=== PATIENT | male | born 1955 | race African-American/Black ===

== ENCOUNTER 2018-12-14 06:34 | Outpatient (CLI) | payer OTHER ==
[2018-12-14 11:49] LABS: Hemoglobin 14.3 g/dL (14.0-18.0); Mean Corpuscular HGB CONC 31.9 g/dL (32.0-36.0); Mean Corpuscular Hemoglobin 30.8 pg (27.0-31.0); Mean Corpuscular Volume 96.4 fL (78.0-98.0); Mean Platelet Volume 7.7 fL (7.4-10.4); Platelet Count 194 thou/uL (130-400); RBC Distribution Width 12.3 % (11.5-14.5); Red Blood Cell (RBC) Count 4.65 mill/uL (4.70-6.10); White Blood Cell (WBC) Count 4.1 thou/uL (4.8-10.8)
[2018-12-14 11:55] LABS: INR-International Normal Ratio 1.1; PTT 28.2 SEC (22.9-36.1); Prothrombin Time 14.4 SEC (12.0-14.7)
[2018-12-14 11:56] LABS: Bilirubin Negative (Negative); Blood, Urine Negative (Negative); Clarity CLEAR (Clear); Glucose, Urine (Dipstick) Negative (Negative); Leukocyte Trace (Negative); Nitrite Negative (Negative); Protein, Urine (Dipstick) Negative (Neg-Trace)
[2018-12-14 12:01] LABS: Bacteria/HPF None Seen HPF (None Seen); Hyaline Casts/LPF 4-6 HYALINE CAST LPF (0-3 Hyaline); Pathc Cast-AUWi Flag 0.72 (0-2.49); RBC/HPF 0-3 HPF (0-3); Squamous Epithelial 0-3 HPF (0-3); WBC/HPF 0-3 HPF (0-3)
[2018-12-14 12:08] LABS: Anion Gap 11 mmol/L (10-20); BUN (Urea Nitrogen) 13 mg/dL (8.4-25.7); Calc. Creatinine Clearance 0 mL/min (70-130); Calcium 9.5 mg/dL (7.8-10.44); Carbon Dioxide 31 mmol/L (23-31); Chloride 104 mmol/L (98-107); Estimated GFR-MDRD 57; Glucose 88 mg/dL (80-115); Potassium 3.7 mmol/L (3.5-5.1); Sodium 142 mmol/L (136-145)
[2018-12-14 12:25] LABS: Crystals/HPF None Seen HPF (Negative)
--- NOTE | 2018-12-15 20:59 | EKG ---
Test Reason : Blood Pressure : / mmHG Vent. Rate : 055 BPM Atrial Rate : 055 BPM P-R Int : 134 ms QRS Dur : 102 ms QT Int : 428 ms P-R-T Axes : 075 047 049 degrees QTc Int : 409 ms Sinus bradycardia Otherwise normal ECG No previous ECGs available Confirmed by Dominguez MARTIN ([id number]) on 12/15/2018 8:58:47 PM Referred By: MILENA Confirmed By:Dominguez MARTIN
== END 2018-12-14 06:35 | disposition home or self-care (01) ==
LOC: LABBT 06:34
PROVIDERS: ATTEND Urology
DX: Z01.818 Encounter for other preprocedural examination (principal); N40.1 Benign prostatic hyperplasia with lower urinary tract symptoms; R97.20 Elevated prostate specific antigen [PSA]
CPT/HCPCS: 80048; 81001; 85027; 85610; 85730; 87086; 93005; 93010

== ENCOUNTER 2018-12-21 06:03 | Observation (INO) | payer OTHER ==
[2018-12-14 10:54] VITALS: BMI 30.1
[2018-12-21] MEDS ORDERED: Levofloxacin 500 mg/D5W 100 ml Premix Bag ONE (06:20)
[2018-12-21] MEDS ORDERED: Fentanyl 100 MCG/2 ML VIAL ONE (08:54)
[2018-12-21] MEDS ORDERED: B & O ONE (09:06)
[2018-12-21] MEDS ORDERED: Phenazopyridine HCl 97.5 MG TABLET PO PRN (10:56)
[2018-12-21] MEDS ORDERED: hydrALAZINE 20 MG/ML VIAL SLOW IVP PRN (10:56)
[2018-12-21] MEDS ORDERED: Acetaminophen 500 MG TAB PO PRN (10:56)
[2018-12-21] MEDS ORDERED: Mag-Al 1200 mg/1200 mg/30 ML UDCUP PO PRN (10:56)
[2018-12-21] MEDS ORDERED: Hyoscyamine Sulfate SL 0.125 mg Tablet SL PRN (10:56)
[2018-12-21] MEDS ORDERED: Oxybutynin 5 MG TAB PO PRN (10:56)
[2018-12-21] MEDS ORDERED: Ondansetron PF 4 MG/2 ML Vial IVP PRN (10:56)
[2018-12-21] MEDS ORDERED: diphenhydrAMINE 25 MG CAP PO PRN (10:56)
[2018-12-21] MEDS ORDERED: Bisacodyl 10 MG SUPP PR PRN (10:56)
[2018-12-21] MEDS ORDERED: Morphine 2 MG/ML SYRINGE SLOW IVP PRN (10:56)
[2018-12-21] MEDS ORDERED: traMADol HCl 50 MG TAB PO PRN (10:58)
--- NOTE | 2018-12-21 12:05 | OP ---
DATE OF PROCEDURE: 12/21/2018 SERVICE: Urology. PREOPERATIVE DIAGNOSIS: BPH with lower urinary tract symptoms. POSTOPERATIVE DIAGNOSIS: BPH with lower urinary tract symptoms. PROCEDURE PERFORMED: Transurethral resection of the prostate. INDICATIONS FOR PROCEDURE: Mr. Celesitn is a 63-year-old black male, who has significant urinary symptoms with history of urinary retention. He is currently on Flomax and finasteride with relatively good control of his symptoms, but he still has some weak stream issues. Cystoscopy demonstrated a ball valving type median lobe and I recommended surgery as the best option to get off medication and improve his urinary symptoms. After discussion of the risks and benefits, he has agreed to proceed forward. DESCRIPTION OF PROCEDURE: After identification of armband and verification of consent, the patient was brought back to the operating room, where he underwent general anesthesia with an LMA. He was placed in dorsal lithotomy position and prepped and draped in usual sterile fashion. After appropriate time-out, a lubricated 24-[place] resectoscope sheath was placed with the visual obturator through the urethra into the bladder. The visual obturator was switched out for the bipolar resectoscope loop. The ureters were identified on both sides of the large median lobe far enough away from the bladder neck. The median lobe was taken down using the resectoscope, and then the prostate was resected circumferentially from the bladder neck all the way to the verumontanum, taking care not to pass the verumontanum or injure any of the sphincter muscles. The prostate was resected until we were near but not through the capsule. The prostate was wide open and meticulous hemostasis was performed with the coag function on the bipolar loop. All prostate chips were evacuated with a combination of the Ellik evacuator and manual irrigation. Upon final inspection, there were no additional prostate chips that could be visualized. Both ureters were in their orthotopic location unharmed. The prostate was wide open and there was no active bleeding. The resectoscope was then removed. An attempt to place a 22-[place] three-way Marsh catheter was attempted, but this was met with difficulty as the prostate ridge was quite high. Despite during the surgery, taking down the bladder neck at 5 and 7 o'clock, the angle of the prostate and bladder neck was still too sharp for the catheter to pass in. Since there was no continuous flow, coude catheter that we have, I used the visual obturator for the resectoscope to go back into the bladder. The visual obturator was then removed leaving the outer sheath in place. An Amplatz Super Stiff wire was then placed through the sheath into the bladder and then the sheath was removed. Using an Angiocath needle to create a [place]-tip catheter out of the three-way Marsh catheter, this was used to guide the catheter back into the bladder over the wire, which passed with ease into the bladder. The wire was then removed and 30 mL of sterile water was placed into the balloon. The bladder was irrigated and it was clear. CBI was initiated. The patient was then awakened and taken to PACU for recovery in stable condition. He did have a 16A B and O suppository placed in his rectum prior to waking up. COMPLICATIONS: None. ESTIMATED BLOOD LOSS: Minimal. RETAINED TUBES AND DRAINS: A 22-[place] three-way Marsh catheter. SPECIMENS: Prostate chips. DISPOSITION: The patient will be kept in the hospital overnight. We will plan to discharge tomorrow after a void trial. Job ID: [id number]
[2018-12-21] MEDS ORDERED: Ketorolac Tromethamine 30 MG/ML VIAL ONE (15:21)
[2018-12-21] MEDS ORDERED: PROPOFOL 200 MG/20 ML VIAL ONE (15:21)
[2018-12-21] MEDS ORDERED: Ondansetron PF 4 MG/2 ML Vial ONE (15:21)
[2018-12-21] MEDS ORDERED: ePHEDrine/0.9% NaCl/PF SYRINGE 50 mg/10 ml ONE (15:21)
[2018-12-21] MEDS ORDERED: Dexamethasone 20 MG/5 ML VIAL ONE (15:21)
[2018-12-21] MEDS ORDERED: Lidocaine 1% PF 5 ML VIAL ONE (15:21)
[2018-12-21] MEDS ORDERED: PHENYLEPHRINE-NS 100 MCG/ML 10 ML SYRINGE ONE (15:21)
[2018-12-21] MEDS ORDERED: Amlodipine 10 MG TAB PO SCH (21:00)
[2018-12-21] MEDS: Docusate 100 MG CAP PO SCH (21:17)
[2018-12-22 06:19] LABS: #Lymphocytes 0.9 thou/uL (1.20-3.40); #Monocytes 0.6 thou/uL (0.11-0.59); #Neutrophils 8.9 thou/uL (1.40-6.50); %Basophils 0.1 % (0.0-1.0); %Eosinophils 0.2 % (0.0-10.0); %Lymphocytes 8.7 % (21.0-51.0); %Monocytes 5.9 % (0.0-10.0); %Neutrophils 85.1 % (42.0-75.0); Hemoglobin 14.4 g/dL (14.0-18.0); Mean Corpuscular HGB CONC 32.6 g/dL (32.0-36.0); Mean Corpuscular Volume 98.2 fL (78.0-98.0); Mean Platelet Volume 7.9 fL (7.4-10.4); Platelet Count 184 thou/uL (130-400); RBC Distribution Width 12.2 % (11.5-14.5); Red Blood Cell (RBC) Count 4.49 mill/uL (4.70-6.10); White Blood Cell (WBC) Count 10.4 thou/uL (4.8-10.8)
[2018-12-22 06:45] LABS: Anion Gap 14 mmol/L (10-20); BUN (Urea Nitrogen) 12 mg/dL (8.4-25.7); Calc. Creatinine Clearance 77 mL/min (70-130); Calcium 9.2 mg/dL (7.8-10.44); Carbon Dioxide 24 mmol/L (23-31); Chloride 105 mmol/L (98-107); Estimated GFR-MDRD 72; Glucose 133 mg/dL (80-115); Potassium 3.5 mmol/L (3.5-5.1); Sodium 139 mmol/L (136-145)
[2018-12-22] MEDS: Docusate 100 MG CAP PO SCH (08:45)
[2018-12-22 11:57] VITALS: BP 142/81; TEMP 97.7
--- NOTE | 2018-12-22 14:34 | PRG ---
DATE OF SERVICE: 12/22/2018 SUBJECTIVE: The patient has done very well overnight with minimal pain. His CBI was stopped this morning at 7:00 a.m. and his urine has been a light red color which is translucent and without clots. His catheter was removed upon my instruction and we are waiting for void trial. He denies any chest pain or shortness of breath. OBJECTIVE: VITAL SIGNS: Temperature 97.7, pulse 66, respirations 12, blood pressure 142/81, and saturation 99% on room air. GENERAL: No apparent distress. ABDOMEN: Soft, nontender, and nondistended. Positive bowel sounds. : Marsh catheter was light red which was removed. EXTREMITIES: No clubbing, cyanosis, or edema. LABORATORY EVALUATION: The full set of labs are in the [employer] [facility] system which I have reviewed. Of note, the patient's white count is 10.4 with a hemoglobin of 14.4. Creatinine of 1.23. ASSESSMENT AND PLAN: A 63-year-old black male with BPH and obstruction, status post TURP, postoperative day 1, with no significant bleeding. We will wait him to void and if he voids successfully with light-colored urine, he should be able to be discharged home without any problems. We will make his followup on an outpatient basis and the patient does not need to take his prostate medications any further. Job ID: [id number]
--- NOTE | 2018-12-23 03:41 | DIS ---
DATE OF ADMISSION: 12/21/2018 DATE OF DISCHARGE: 12/22/2018 ADMITTING DIAGNOSIS: BPH with obstruction. DISCHARGE DIAGNOSIS: BPH with obstruction. PROCEDURE PERFORMED: Transurethral resection of the prostate. BRIEF HISTORY: Mr. Celestin is a 63-year-old black male, who initially had seen me for urinary problems. He has a history of urinary retention. He is on maximal medical therapy, but still does not have completely adequate voiding. He elected to proceed forward with TURP. Please see the full H and P in the scanned portion of the [employer] system. HOSPITAL COURSE: After surgery (please see operative note for details). The patient was kept in the hospital for continuous bladder irrigation and postop recovery. His CBI was run overnight and he had no events. His CBI was stopped in the morning the next day and his urine was very light translucent red. The catheter was removed and the patient was able to void spontaneously twice with lightening urine that showed less hematuria. He did not pass any clots. He had some mild dysuria, but no other complaints. He was felt adequate for discharge and was discharged home. DISPOSITION: Discharged to home. DISCHARGE CONDITION: Good. DISCHARGE MEDICATIONS: 1. Continue amlodipine. 2. Stop finasteride and tamsulosin. New medications include: 1. Tramadol. 2. Oxybutynin. 3. Pyridium. 4. Colace. DISCHARGE INSTRUCTIONS: No heavy lifting or strenuous activities. Avoid constipation. Avoid long car rides or any significant vibratory type activities that would shake up or aggravate the prostate. Followup will be in approximately 2 weeks for a postop check. Job ID: [id number]
== END 2018-12-22 16:00 | disposition home or self-care (01) ==
LOC: SDC 06:03 → SJJU 16:03
PROVIDERS: ADMIT Urology; ATTEND Urology
PROC: 0VT08ZZ Resection of Prostate, Via Natural or Artificial Opening Endoscopic (ICD-10-PCS; principal; 2018-12-22)
DX: N40.1 Benign prostatic hyperplasia with lower urinary tract symptoms (principal); N13.8 Other obstructive and reflux uropathy; R33.8 Other retention of urine; R39.12 Poor urinary stream; I10 Essential (primary) hypertension; Z79.899 Other long term (current) drug therapy
CPT/HCPCS: 36415; 80048; 85025; 88305; 90471; 90686; G0008; G0378; J1100; J1885; J1956; J2001; J2405; J2704; J3010